=== PATIENT | female | born 1955 | race Caucasian/White ===

== ENCOUNTER → 2018-01-01 | Outpatient (CLI) | payer OTHER ==
[~2018-01-01] MED LIST: ASPIR 8181 MG PO; BACTRIM DS TAB1 EACH PO; EVISTA PO; FISH OIL 1,001000 M2 PO; FLAX OIL1000 MG PO; HYDROCODONE-AP1 EAC6 PO; MAXZIDE-25 MG1 EACH PO; VITAMIN D1000 UNI1 PO; VITAMIN E400 UNIT PO; VITAMINC500 PO
== END ==
LOC: M.LAB 01:27
DX: Z01.812 Encounter for preprocedural laboratory examination (principal)